=== PATIENT | female | born 1985 | race African-American/Black ===

== ENCOUNTER → 2016-10-14 | Outpatient (CLI) | payer OTHER ==
--- NOTE | 2016-10-14 10:32 | ECGEPIP ---
Stationary ECG Study [facility] Test Date: 2016-10-14 Pat Name: CATHI MILES Department: Room: - Gender: F [employer] Apprentice: : 1985 Requested By: BRITTNEY Penny Order Number: [id number] Reading MD: Nishant Sims Measurements Intervals [place] Rate: 100 P: 66 NC: 158 QRS: 57 QRSD: 86 T: 54 QT: 317 QTc: 409 Interpretive Statements SINUS TACHYCARDIA Comparison tracing not on file Electronically Signed On 10-14-2016 10:32:15 EDT by Nishant Sims
== END ==
LOC: M EKG 09:01
PROVIDERS: ATTEND Student in an Organized Health Care Education/Training Program
DX: O24.919 Unspecified diabetes mellitus in pregnancy, unspecified trimester (principal)

== ENCOUNTER 2017-03-13 10:54 | Outpatient (CLI) | payer OTHER ==
[~2017-03-13] VITALS: Ht 157.5 cm; Wt 78.5 kg
[2017-03-13 11:05] VITALS: BP 126/79
[2017-03-18] MEDS ORDERED: MULTTAB20 PO (09:02)
== END 2017-03-13 12:00 | disposition home or self-care (01) ==
LOC: M LDO 10:54
PROVIDERS: ATTEND Obstetrics & Gynecology
DX: O26.893 Other specified pregnancy related conditions, third trimester (principal); Z3A.37 37 weeks gestation of pregnancy; O30.043 Twin pregnancy, dichorionic/diamniotic, third trimester; O24.913 Unspecified diabetes mellitus in pregnancy, third trimester; R60.9 Edema, unspecified

== ENCOUNTER → 2017-03-19 | Outpatient (CLI) | payer OTHER | LOC: M LDO 11:36 | DX: Z36.89 Encounter for other specified antenatal screening (principal); O24.313 Unspecified pre-existing diabetes mellitus in pregnancy, third trimester; Z3A.38 38 weeks gestation of pregnancy | CPT/HCPCS: 59025 ==

== ENCOUNTER 2017-03-25 05:14 | Inpatient (IN) | payer OTHER ==
[2017-03-25 05:54] LABS: HEMATOCRIT 35.9 % (36.0-47.0); MEAN CORPUSCULAR HEMOGLOBIN 27.2 pg (27.0-33.0); MEAN CORPUSCULAR HGB CONC 33.4 g/dl (32.0-36.5); MEAN CORPUSCULAR VOLUME 81.4 fl (80.0-96.0); PLATELET COUNT, AUTOMATED 189 10^3/uL (150-450); RED BLOOD COUNT 4.41 10^6/uL (4.00-5.40); RED CELL DISTRIBUTION WIDTH 14.7 % (11.5-14.5); WHITE BLOOD COUNT 9.9 10^3/uL (4.0-10.0)
[2017-03-25 06:13] LABS: AMPHETAMINES URINE REFLEX NEGATIVE (NEGATIVE); BARBITURATES URINE REFLEX NEGATIVE (NEGATIVE); BENZODIAZEPINES URINE REFLEX NEGATIVE (NEGATIVE); CANNABINOIDS URINE REFLEX NEGATIVE (NEGATIVE); COCAINE METABOLITE URINE REFLE NEGATIVE (NEGATIVE); METHADONE URINE REFLEX NEGATIVE (NEGATIVE); OPIATES URINE REFLEX NEGATIVE (NEGATIVE); PHENCYCLIDINE URINE REFLEX NEGATIVE (NEGATIVE)
[2017-03-25 07:31] LABS: BEDSIDE GLUCOSE 73 MG/DL (70-105)
[2017-03-25] MEDS: LR 1,000 ML IV ×3 (07:43→09:50)
[2017-03-25] MEDS: BICITRA 30ML SOLN UDC PO (07:43)
[2017-03-25] MEDS ORDERED: ePHEDrine SULFATE 25 MG/5 ML(5MG/ML) SYRINGE As Ordered (08:23)
[2017-03-25] MEDS ORDERED: MORPHINE PRES-FREE INJ 10 MG/10 ML VIAL (J2274) As Ordered (08:23)
[2017-03-25] MEDS ORDERED: KETOROLAC 60 MG/2 ML VIAL (J1885) As Ordered (08:23)
[2017-03-25] MEDS ORDERED: PHENYLephrine HCL 500 MCG/5 ML (100MCG/ML) SYRINGE (J2370) As Ordered ×2 (08:23)
[2017-03-25] MEDS ORDERED: OXYTOCIN INJ 10 UNITS/ML VIAL (J2590) As Ordered ×2 (08:23→08:36)
[2017-03-25] MEDS ORDERED: ONDANSETRON 4MG/2ML VIAL (J2405) As Ordered (08:23)
[2017-03-25] MEDS ORDERED: fentaNYL 100 MCG/2 ML INJECTION (J3010) As Ordered (08:58)
[2017-03-25] MEDS: PRENATAL VITAMINS CHEWABLE TABLET PO (09:00)
[2017-03-25] MEDS ORDERED: ONDANSETRON 4MG/2ML VIAL (J2405) IV ×2 (10:00→10:15)
[2017-03-25] MEDS ORDERED: PERCOCET 5MG/325MG TAB PO ×2 (10:00→10:15)
[2017-03-25] MEDS ORDERED: MOM 30ML SUSPENSION UDC PO (10:00)
[2017-03-25] MEDS ORDERED: fentaNYL 100 MCG/2 ML INJECTION (J3010) IV (10:15)
[2017-03-25] MEDS ORDERED: SLF 3 ML SYR IV (13:15)
[2017-03-25] MEDS: SLF 3 ML SYR IV ×2 (13:59→20:46)
[2017-03-25] MEDS: KETOROLAC 30 MG/ML VIAL (J1885) IV ×2 (14:00→20:06)
[2017-03-25] MEDS: DOCUSATE SODIUM 100 MG CAP PO (20:43)
[2017-03-26] MEDS: KETOROLAC 30 MG/ML VIAL (J1885) IV (01:58)
[2017-03-26] MEDS: SLF 3 ML SYR IV (06:13)
[2017-03-26 06:35] LABS: HEMATOCRIT 30.3 % (36.0-47.0); HEMOGLOBIN 10.1 g/dl (12.0-16.0); MEAN CORPUSCULAR HEMOGLOBIN 27.2 pg (27.0-33.0); MEAN CORPUSCULAR HGB CONC 33.3 g/dl (32.0-36.5); MEAN CORPUSCULAR VOLUME 81.7 fl (80.0-96.0); PLATELET COUNT, AUTOMATED 159 10^3/uL (150-450); RED BLOOD COUNT 3.71 10^6/uL (4.00-5.40); RED CELL DISTRIBUTION WIDTH 14.8 % (11.5-14.5); WHITE BLOOD COUNT 9.5 10^3/uL (4.0-10.0)
[2017-03-26] MEDS: DOCUSATE SODIUM 100 MG CAP PO (08:20)
[2017-03-26] MEDS: IBUPROFEN 800 MG TAB PO ×2 (08:21→16:03)
[2017-03-26] MEDS: PRENATAL VITAMINS CHEWABLE TABLET PO (08:21)
[2017-03-26] MEDS: MEASLES,MUMPS,RUBELLA VACCINE INJ (MMR-II) (90707) SC (14:51)
[2017-03-26] MEDS: RHOGAM 300 MCG (1500 IU) INJ (J2790) IM (14:51)
[2017-03-26] MEDS: PERCOCET 5MG/325MG TAB PO (18:37)
[2017-03-27] MEDS: PERCOCET 5MG/325MG TAB PO (03:58)
[2017-03-27] MEDS: DOCUSATE SODIUM 100 MG CAP PO ×2 (04:02→09:34)
[2017-03-27] MEDS: IBUPROFEN 800 MG TAB PO ×2 (09:34)
[2017-03-27] MEDS: PRENATAL VITAMINS CHEWABLE TABLET PO (09:34)
[2017-03-27] MEDS: INFLUENZA QUADRIVALENT PF VACCINE 0.5ML SYRINGE (90686) IM (12:00)
== END 2017-03-27 12:10 | disposition home or self-care (01) | DRG 766 ==
LOC: M LDI 05:14 → M OBS 11:13
PROVIDERS: Obstetrics & Gynecology
PROC: 10D00Z1 Extraction of Products of Conception, Low, Open Approach (ICD-10-PCS; principal; 2017-03-25 07:30)
PROC: 0UB70ZX Excision of Bilateral Fallopian Tubes, Open Approach, Diagnostic (ICD-10-PCS; 2017-03-25 07:30)
DX: O24.425 Gestational diabetes mellitus in childbirth, controlled by oral hypoglycemic drugs (principal); Z37.0 Single live birth; Z3A.39 39 weeks gestation of pregnancy; Z30.2 Encounter for sterilization; O34.211 Maternal care for low transverse scar from previous cesarean delivery

== ENCOUNTER → 2018-02-15 | Outpatient (REF) | payer OTHER | LOC: M SFHCLERA 12:03 | DX: R53.81 Other malaise (principal) ==

== ENCOUNTER → 2018-09-02 | Outpatient (REF) | payer OTHER ==
[~2018-09-02] MED LIST: IBUP1TAB7 PO; MIRA3350 PO; MULTTAB20 PO; OXYC1TAB23 PO
== END ==
LOC: M SFHCLERA 16:22
PROVIDERS: ATTEND Physician Assistant
DX: N39.0 Urinary tract infection, site not specified (principal)
CPT/HCPCS: 81002; 87088; 87186; G0463